=== PATIENT | female | born 1985 | race Caucasian/White ===

== ENCOUNTER 2018-05-21 10:41 | Outpatient (CLI) | payer OTHER | END 2018-05-22 14:38 | disposition home or self-care (01) | LOC: OBS/DEL 10:41 | DX: O26.892 Other specified pregnancy related conditions, second trimester (principal); N20.0 Calculus of kidney; O60.02 Preterm labor without delivery, second trimester; O46.8X2 Other antepartum hemorrhage, second trimester; Z34.02 Encounter for supervision of normal first pregnancy, second trimester ==

== ENCOUNTER 2018-08-13 20:39 | Inpatient (IN) | payer OTHER ==
[~2018-08-13] VITALS: Ht 160 cm; Wt 1.8 kg
[2018-08-13] MEDS ORDERED: OBSTETRIX EC C1 EACH PO (22:43)
== END 2018-08-17 12:38 | DRG 788 ==
LOC: OBS/DEL 20:39 → OB/GYN 08-14 10:27 → LDR 08-14 10:27 → OB/GYN 08-15 02:17
PROVIDERS: Obstetrics & Gynecology
PROC: 4A1HXCZ Monitoring of Products of Conception, Cardiac Rate, External Approach (ICD-10-PCS; 2018-08-14)
PROC: 4A033R1 Measurement of Arterial Saturation, Peripheral, Percutaneous Approach (ICD-10-PCS; 2018-08-14)
PROC: BY4FZZZ Ultrasonography of Third Trimester, Single Fetus (ICD-10-PCS; 2018-08-14)
PROC: 10D00Z1 Extraction of Products of Conception, Low, Open Approach (ICD-10-PCS; principal; 2018-08-14 21:00)
DX: O62.0 Primary inadequate contractions (principal); O13.4 Gestational [pregnancy-induced] hypertension without significant proteinuria, complicating childbirth; O34.13 Maternal care for benign tumor of corpus uteri, third trimester; D25.0 Submucous leiomyoma of uterus; O36.5930 Maternal care for other known or suspected poor fetal growth, third trimester, not applicable or unspecified; Z3A.37 37 weeks gestation of pregnancy; Z37.0 Single live birth